=== PATIENT | male | born 1940 | race Caucasian/White ===

== ENCOUNTER 2019-07-28 01:09 | Day surgery (SDC) | payer MEDICARE ==
[~2019-07-28 01:09] MED LIST: ALLO100 PO; ZOCOR20 MG PO
[2019-07-28] MEDS ORDERED: IRON150C PO (09:35)
== END 2019-07-28 09:42 | disposition home or self-care (01) ==
LOC: ATC 01:09
DX: R42 Dizziness and giddiness (principal); E78.5 Hyperlipidemia, unspecified; N18.9 Chronic kidney disease, unspecified; Z88.5 Allergy status to narcotic agent
CPT/HCPCS: 36415; 80400; 82533; 99211; J0834

== ENCOUNTER 2020-04-25 14:46 | Emergency (ER) | payer MEDICARE ==
[~2020-04-25] VITALS: Ht 190.5 cm; Wt 111.1 kg
[~2020-04-25 14:46] MED LIST changes: +IRON150C PO
[2020-04-25] MEDS ORDERED: Norco 5-325 Ta1 EACH PO (16:13)
[2020-04-26] MEDS ORDERED: FERSU300 PO (13:35)
[2020-04-26] MEDS ORDERED: LIDO700A20 TOP (13:43)
[2020-04-26] MEDS ORDERED: Roxicodone5 MG PO (13:43)
[2020-04-26] MEDS ORDERED: ACET500 PO (13:43)
== END 2020-04-25 16:57 | disposition home or self-care (01) ==
LOC: ER 14:46
DX: S43.101A Unspecified dislocation of right acromioclavicular joint, initial encounter (principal); S00.83XA Contusion of other part of head, initial encounter; Z79.899 Other long term (current) drug therapy; Z88.5 Allergy status to narcotic agent; Z88.6 Allergy status to analgesic agent; W10.9XXA Fall (on) (from) unspecified stairs and steps, initial encounter
CPT/HCPCS: 70450; 73030; 99284-25

== ENCOUNTER 2020-04-26 12:00 | Emergency (ER) | payer MEDICARE ==
[~2020-04-26] VITALS: Ht 190.5 cm; Wt 111.1 kg
[~2020-04-26 12:00] MED LIST changes: +Norco 5-325 Ta1 EACH PO
[2020-04-26] MEDS ORDERED: FERSU300 PO (13:35)
[2020-04-26] MEDS ORDERED: ACET500 PO (13:43)
[2020-04-26] MEDS ORDERED: LIDO700A20 TOP (13:43)
[2020-04-26] MEDS ORDERED: Roxicodone5 MG PO (13:43)
== END 2020-04-26 14:55 | disposition home or self-care (01) ==
LOC: ER 12:00
DX: S22.41XA Multiple fractures of ribs, right side, initial encounter for closed fracture (principal); M25.511 Pain in right shoulder; Z88.6 Allergy status to analgesic agent; Z88.5 Allergy status to narcotic agent; Z79.899 Other long term (current) drug therapy; W19.XXXA Unspecified fall, initial encounter
CPT/HCPCS: 71045; 73030; 99283-25; A9270

== ENCOUNTER → 2020-10-03 | Outpatient (CLI) | payer MEDICARE ==
[~2020-10-03] MED LIST changes: +ACET500 PO; +FERSU300 PO; +LIDO700A20 TOP; +Roxicodone5 MG PO
== END ==
LOC: LAB SHORT 08:36 → LAB 08:36
DX: L60.2 Onychogryphosis (principal); B35.1 Tinea unguium
CPT/HCPCS: 88305; 88312

== ENCOUNTER → 2020-12-24 | Outpatient (CLI) | payer MEDICARE | END | disposition home or self-care (01) | LOC: LAB SHORT 09:17 | DX: R30.0 Dysuria (principal) | CPT/HCPCS: 87086 ==